=== PATIENT | male | born 1990 | race Two or more races ===

== ENCOUNTER 2022-12-02 20:46 | Emergency (ER) | payer BC ==
[~2022-12-02] VITALS: Ht 175.3 cm; Wt 116.2 kg
[2022-12-02] MEDS: LIDOCAINE HCL 5 % TOP OINT 35 GM TOP ONE (21:00)
[2022-12-02] MEDS ORDERED: PHEN1OIN PR (21:07)
[2022-12-02] MEDS ORDERED: DOCU-94 PO (21:07)
[2022-12-02] MEDS ORDERED: HYDR-4798 PO (21:09)
[2022-12-02] MEDS: KETOROLAC TROMETH 60MG/2ML VIAL IM ONE (23:19)
[2022-12-02] MEDS: ACETAMINOPHEN 500 MG TAB PO ONE (23:20)
[2022-12-02] MEDS: LIDOCAINE VISCOUS 2% 15ML UD ONE (23:25)
[2022-12-02] MEDS: LIDOCAINE VISCOUS 2% 15ML UD MT ONE (23:25)
[2022-12-02 23:32] VITALS: BP 136/81
== END 2022-12-02 23:34 | disposition home or self-care (01) ==
LOC: ER 20:46
DX: K64.4 Residual hemorrhoidal skin tags (principal); E11.9 Type 2 diabetes mellitus without complications; I10 Essential (primary) hypertension
CPT/HCPCS: 96372; 99283; J1885

== ENCOUNTER 2023-07-24 22:27 | Emergency (ER) | payer BC ==
[~2023-07-24] VITALS: Ht 175.3 cm; Wt 112.7 kg
[~2023-07-24 22:27] MED LIST: DOCU-94 PO; HYDR-4798 PO; PHEN1OIN PR
[2023-07-24 22:45] VITALS: BP 154/106; PULSE 93; RESP 18; O2SAT 95
[2023-07-25 00:03] LABS: Urine Bacteria NONE SEEN /hpf (None Seen); Urine Blood Negative /uL (Negative); Urine Clarity Clear (Clear); Urine Color Colorless (Yellow); Urine Protein, UAD Negative (Negative); Urine Specific Gravity 1.022 (1.001-1.035); Urine Urobilinogen Normal (Negative); Urine WBC <1 /hpf (0 - 3); Urine pH 5.5 (5.0-8.0)
== END 2023-07-25 00:03 | disposition left against medical advice (07) ==
LOC: ER 22:31
DX: R10.13 Epigastric pain (principal); R19.7 Diarrhea, unspecified; Z53.21 Procedure and treatment not carried out due to patient leaving prior to being seen by health care provider
CPT/HCPCS: 81001; 82962